=== PATIENT | female | born 1960 | race Two or more races ===

== ENCOUNTER 2020-12-23 23:02 | Inpatient (IN) | payer MEDICAID ==
[~2020-12-23] VITALS: Ht 162.6 cm; Wt 176.8 kg
[2020-12-23] MEDS ORDERED: morphine 4 MG/ML inj SYRINge IV ONE (23:30)
--- NOTE | 2020-12-23 23:32 | NUR ---
VERBAL RECEIVED FORM PROSPER AVERY FOR MORPHINE 4 MG IV AND RIGHT LEG XRAY
--- NOTE | 2020-12-23 23:51 | NUR ---
Patient to xray
[2020-12-24] MEDS ORDERED: morphine 4 MG/ML inj SYRINge IV ONE (00:15)
--- NOTE | 2020-12-24 00:16 | NUR ---
Per Dr. Lovelace ok to to order Morphine 4mg for extreme right leg pain
--- NOTE | 2020-12-24 00:29 | NUR ---
DAUGHTER AT BEDSIDE AND REPORTS SHE DOES NOT WANT HER MOTHER TO HAVE DR. MATTA THE ORTHOPEDIC MD. DAUGHTER AND PT UPDATED THAT THIS MESSAGE WAS PASSED TO DR. FERNANDEZ.
[2020-12-24] MEDS ORDERED: HYDROmorphone 1 mg/ml syringe IV PRN (00:35)
--- NOTE | 2020-12-24 00:46 | NUR ---
AWAITING ORTHO BED WITHI TRAPEZE AND TRACTION. DILAUDID NOW ORDERED.
[2020-12-24 00:58] LABS: BASOPHILS % (AUTO) 0.2 % (0-1); EOSINOPHILS % (AUTO) 0.4 % (0-6); HEMATOCRIT 30.4 % (35.0-45.0); LYMPHOCYTES # (AUTO) 0.6 X10'3 (1.1-4.8); LYMPHOCYTES % (AUTO) 9.4 % (21-51); MEAN CORPUSCULAR HEMOGLOBIN 29.2 PG (27.0-31.0); MEAN CORPUSCULAR HGB CONC 33.1 g/dL (33.0-36.5); MEAN CORPUSCULAR VOLUME 88.3 FL (78-98); MONOCYTES # (AUTO) 0.4 X10'3 (0-0.9); MONOCYTES % (AUTO) 5.5 % (2-12); NEUTROPHILS # (AUTO) 5.6 X10'3 (1.8-7.7); NEUTROPHILS % (AUTO) 84.5 % (42-75); PLATELET COUNT 132 X10'3 (140-440); RED BLOOD COUNT 3.44 X10'6 (4.20-5.60); RED CELL DISTRIBUTION WIDTH 15.3 % (11.5-14.5); WHITE BLOOD COUNT 6.6 X10'3 (4.5-11.0)
--- NOTE | 2020-12-24 00:58 | NUR ---
Dr. Amador at bedside to admit pt. Pt's son at bedside. Pt given dilaudid 1 mg iv.
[2020-12-24 01:02] LABS: ALANINE AMINOTRANSFERASE 19 U/L (12-78); ALBUMIN 3.4 G/DL (3.4-5.0); ALBUMIN/GLOBULIN RATIO 0.9 (1.1-1.5); ALKALINE PHOSPHATASE 121 IU/L (46-116); ANION GAP 10 (8-16); ASPARTATE AMINO TRANSFERASE 24 U/L (10-37); BILIRUBIN,TOTAL 0.6 MG/DL (0.1-1.0); BLOOD UREA NITROGEN 22 MG/DL (7-18); BUN/CREATININE RATIO 29.3 (6.6-38.0); CALCIUM 8.7 MG/DL (8.5-10.1); CHLORIDE 105 MMOL/L (99-107); CREATININE 0.75 MG/DL (0.40-0.90); GLUCOSE 118 MG/DL (70-104); POTASSIUM 3.9 MMOL/L (3.5-5.1); SODIUM 142 MMOL/L (135-145); TOTAL PROTEIN 7.1 G/DL (6.4-8.2); eGFR 79 ML/MIN
[2020-12-24] MEDS ORDERED: HYDROmorphone 1 mg/ml syringe IV ONE (01:10)
--- NOTE | 2020-12-24 01:11 | NUR ---
verbal received for adtl dilaudid 1.5 mg iv x1 now from Dr. Amador
[2020-12-24] MEDS ORDERED: potassium Cl 40MEQ/1/2NS 520ml 520 ML IV PRN ×2 (01:25)
[2020-12-24] MEDS ORDERED: potassium Cl 20 mEq SR tablet PO PRN ×2 (01:25)
[2020-12-24] MEDS ORDERED: HYDROmorphone inj. 0.5 MG/0.5 ML DISP.SYRIN IV PRN (01:25)
[2020-12-24] MEDS ORDERED: acetaminophen 325mg tablet PO PRN (01:25)
[2020-12-24] MEDS ORDERED: magnesium hydroxide 30ml (MOM) UD suspension PO PRN (01:25)
[2020-12-24] MEDS ORDERED: mag hydrox/Alum hydrox/simeth 30ml oral suspension PO PRN (01:25)
[2020-12-24] MEDS ORDERED: SERT-434 PO (01:35)
[2020-12-24] MEDS ORDERED: PRAM1TAB6 PO (01:35)
[2020-12-24] MEDS ORDERED: CYAN10007 IM (01:35)
[2020-12-24] MEDS ORDERED: FURO40TA4 PO (01:35)
[2020-12-24] MEDS ORDERED: HYDR-3972 PO (01:35)
[2020-12-24] MEDS ORDERED: MORP-92 PO (01:35)
[2020-12-24] MEDS ORDERED: CADD PCA waste documentation MC PRN (01:45)
[2020-12-24] MEDS ORDERED: naloxone 0.4 mg/ml inj IV PRN (01:45)
[2020-12-24] MEDS: normal saline 1000ml 1,000 ML IV SCH ×2 (01:51→14:31)
--- NOTE | 2020-12-24 01:55 | NUR ---
Placed on hospital ortho bed with trapeze and placed on 10 lbs traction. Daughter , Mesha, at bedside and helpful and supportive. Pt awaiting IPA. bp 168/66. Pt is intermmittently sleeping, but when awakens , states pain remains high.
--- NOTE | 2020-12-24 03:21 | NUR ---
son, Rip [phone]. Daughter, Mesha, . Daughter just left department and reports she will return later today to visit Pt. IPA 4007. Dilaudid STACKER STRAIGHTENER just set up and started. Current vss.
[2020-12-24] MEDS: HYDROmorphone/NS 1 mg/ml CADD 50 ML IV SCH ×10 (03:28→21:00)
[2020-12-24 05:46] VITALS: BP 175/62
--- NOTE | 2020-12-24 06:23 | NUR ---
Patient in room ORTHO 4007. I have received report from Michelle RN and Sruthi RN and had the opportunity to ask questions and assume patient care.
--- NOTE | 2020-12-24 06:33 | NUR ---
photoengraving proofer apprentice did not complete 0500 CADD check. Pt resting comfortably at 0630 during hourly rounding. Will assess CADD at 0700.
--- NOTE | 2020-12-24 06:35 | NUR ---
Patient in room ORTHO 4007. I have received report from DAYANARA/LALO BAUER and had the opportunity to ask questions and assume patient care. JHONATAN BOWERS RN WILL PROVIDE PRIMARY CARE. I WILL MONITOR ALL CARE AND ASSIST WHEN NEEDED.
[2020-12-24 07:00] VITALS: BP 173/55
[2020-12-24] MEDS: K and/or MAG REPLACEMENT MC SCH ×3 (08:00→20:00)
[2020-12-24] MEDS ORDERED: magnesium Cl slow-release 64mg tablet PO PRN (09:40)
[2020-12-24] MEDS ORDERED: magnesium 4gm in 100ml NS 100 ML IV PRN (09:40)
[2020-12-24 10:00] VITALS: BP 169/58
[2020-12-24] MEDS: cyclobenzaprine 10mg tablet PO PRN (11:41)
[2020-12-24] MEDS: gabapentin 300mg capsule PO SCH ×3 (11:41→20:16)
[2020-12-24] MEDS: pramipexole 1mg tablet PO SCH ×2 (11:46→20:16)
--- NOTE | 2020-12-24 12:00 | NUR ---
ORIENTEE documentation: I have reviewed and agree with all interventions, assessments performed and documented by LALO BOWERS.
--- NOTE | 2020-12-24 12:00 | NUR ---
DID NOT GIVE PT AM MEDS DUE TO BEING NPO IN PREPARATION FOR POSSIBLE SURGERY, BUT DID NOT NON-ADMIN THEM DUE TO POSSIBLY GIVING THEM AT A LATER TIME.
--- NOTE | 2020-12-24 12:00 | NUR ---
Problems reprioritized. Patient report given, questions answered & plan of care reviewed with LALO Floyd.
--- NOTE | 2020-12-24 12:16 | NUR ---
neo Floyd RN change CADD dose settings.
--- NOTE | 2020-12-24 12:16 | NUR ---
cadd setting change, bolus 0.5 mg and 0.5mg q10min prn, see mar
[2020-12-24 14:00] VITALS: BP 150/54
--- NOTE | 2020-12-24 18:11 | NUR ---
Report to Jacqueline RN. Daughter at bedside assisting patient with dinner. Plan is for transfer to [facility] in AM for higher level of care and surgery with Dr Perez. NPO after midnight in anticipation of surgery. Clarify plan of care BEFORE admin of am lovenox. Hold if surgery is still pending.
[2020-12-24] MEDS: sertraline 50mg tablet PO SCH (20:16)
[2020-12-24] MEDS: enoxaparin 40mg/0.4ml syringe SUBCUT SCH (21:32)
[2020-12-24 23:00] VITALS: BP 185/58
--- NOTE | 2020-12-24 23:34 | NUR ---
Student documentation: I have reviewed all interventions, assessments performed and documented by Britany Bella. Student Medication Administration: For this medication-pass time frame, all medication were reviewed, dispensed, administered and documented per hospital policy by Britany Garcia [place].
[2020-12-25] MEDS: ondansetron/PF 4mg/2ml inj IV PRN ×2 (01:00→07:24)
[2020-12-25] MEDS: HYDROmorphone/NS 1 mg/ml CADD 50 ML IV SCH ×12 (01:00→23:00)
[2020-12-25] MEDS: normal saline 1000ml 1,000 ML IV SCH ×2 (02:16→15:05)
[2020-12-25 05:50] LABS: BASOPHILS % (AUTO) 0.1 % (0-1); EOSINOPHILS % (AUTO) 0 % (0-6); HEMATOCRIT 28.4 % (35.0-45.0); HEMOGLOBIN 9.6 g/dl (12.0-16.0); LYMPHOCYTES # (AUTO) 0.3 X10'3 (1.1-4.8); LYMPHOCYTES % (AUTO) 5.4 % (21-51); MEAN CORPUSCULAR HEMOGLOBIN 29.5 PG (27.0-31.0); MEAN CORPUSCULAR HGB CONC 33.9 g/dL (33.0-36.5); MEAN CORPUSCULAR VOLUME 87.1 FL (78-98); MEAN PLATELET VOLUME 9.5 FL (7.4-10.4); MONOCYTES # (AUTO) 0.3 X10'3 (0-0.9); MONOCYTES % (AUTO) 5.1 % (2-12); NEUTROPHILS # (AUTO) 5.4 X10'3 (1.8-7.7); NEUTROPHILS % (AUTO) 89.4 % (42-75); PLATELET COUNT 96 X10'3 (140-440); RED BLOOD COUNT 3.26 X10'6 (4.20-5.60); RED CELL DISTRIBUTION WIDTH 14.9 % (11.5-14.5); WHITE BLOOD COUNT 6.1 X10'3 (4.5-11.0)
[2020-12-25 06:00] VITALS: BP 170/70
[2020-12-25 06:04] LABS: ALANINE AMINOTRANSFERASE 23 U/L (12-78); ALBUMIN 2.7 G/DL (3.4-5.0); ALBUMIN/GLOBULIN RATIO 0.7 (1.1-1.5); ALKALINE PHOSPHATASE 111 IU/L (46-116); ANION GAP 7 (8-16); ASPARTATE AMINO TRANSFERASE 27 U/L (10-37); BILIRUBIN,TOTAL 0.8 MG/DL (0.1-1.0); BLOOD UREA NITROGEN 12 MG/DL (7-18); BUN/CREATININE RATIO 24.5 (6.6-38.0); CALCIUM 8.6 MG/DL (8.5-10.1); CHLORIDE 102 MMOL/L (99-107); CREATININE 0.49 MG/DL (0.40-0.90); GLUCOSE 145 MG/DL (70-104); MAGNESIUM 1.7 MG/DL (1.5-2.4); PHOSPHORUS 2.7 MG/DL (2.3-4.5); POTASSIUM 3.5 MMOL/L (3.5-5.1); SODIUM 135 MMOL/L (135-145); TOTAL PROTEIN 6.5 G/DL (6.4-8.2); eGFR > 90 ML/MIN
[2020-12-25] MEDS: enoxaparin 40mg/0.4ml syringe SUBCUT SCH (08:00)
[2020-12-25] MEDS: K and/or MAG REPLACEMENT MC SCH ×4 (08:00→19:29)
[2020-12-25] MEDS: sertraline 50mg tablet PO SCH (08:06)
[2020-12-25] MEDS: pramipexole 1mg tablet PO SCH ×2 (08:06→20:52)
[2020-12-25] MEDS: gabapentin 300mg capsule PO SCH ×3 (08:06→20:52)
[2020-12-25] MEDS: cyclobenzaprine 10mg tablet PO PRN (09:04)
--- NOTE | 2020-12-25 09:22 | NUR ---
Zofran was given at 0730 for complain of nausea. patient has been sleeping on and off. t 0850 patient started retching,crying,screaming and complaining of cramping pain on the right leg. Daughter at bedside. dilaudid television camera operator (CADD) dose adjusted to 0.3 mg with lockout of 10 minutes.
[2020-12-25 10:00] VITALS: BP 195/64
[2020-12-25 12:49] VITALS: BP 157/61
--- NOTE | 2020-12-25 12:50 | NUR ---
PATIENT SLEEPING APPEARS IN NO ACUTE DISTRESS
--- NOTE | 2020-12-25 15:59 | NUR ---
With the help of RN I inserted and 18 arabic Tinsley catheter in this patient for traumatic injury/prolonged immobilization currently Tinsley catheter is patent and will continue to monitor.
[2020-12-25 18:00] VITALS: BP 127/55
[2020-12-25] MEDS: cyclobenzaprine 10mg tablet PO SCH ×2 (18:32→23:56)
[2020-12-25] MEDS: amLODIPine 5mg tablet PO SCH (18:33)
[2020-12-25 18:34] LABS: TROPONIN I < 0.04 NG/ML (0.0-0.05)
[2020-12-25 22:00] VITALS: BP 135/59
[2020-12-25 22:11] LABS: CLARITY,URINE CLOUDY (Clear); COLOR,URINE YELLOW (Yellow); GLUCOSE, URINE NEGATIVE (Neg); KETONES,URINE NEGATIVE (Neg); LEUKOCYTE ESTERASE ,URINE MODERATE (Neg); NITRITES, URINE POSITIVE (Neg); OCCULT BLOOD,URINE LARGE (Neg); PROTEIN,URINE 30 mg/dl (Neg)
[2020-12-25 22:19] LABS: UA COLLECTION TYPE FOLEY CATH
[2020-12-25 22:20] LABS: BACTERIA,URINE 4+ /HPF (Neg); WBC,URINE 50-100 /HPF (0-4)
[2020-12-25 22:21] LABS: MUCUS STRANDS MANY /LPF (Neg); SQUAMOUS EPITHELIAL CELL,UR FEW /LPF (FEW)
[2020-12-26] MEDS: HYDROmorphone/NS 1 mg/ml CADD 50 ML IV SCH ×9 (01:00→16:34)
[2020-12-26] MEDS ORDERED: LIDOcaine 2% 10ml TOPICAL JELLY (Urojet) TP ONE (02:00)
[2020-12-26] MEDS: normal saline 1000ml 1,000 ML IV SCH ×2 (03:10→16:29)
[2020-12-26 06:00] VITALS: BP 133/50
[2020-12-26 06:19] LABS: BASOPHILS % (AUTO) 0.3 % (0-1); EOSINOPHILS % (AUTO) 1.1 % (0-6); HEMATOCRIT 23.5 % (35.0-45.0); HEMOGLOBIN 7.8 g/dl (12.0-16.0); LYMPHOCYTES # (AUTO) 0.7 X10'3 (1.1-4.8); LYMPHOCYTES % (AUTO) 16.1 % (21-51); MEAN CORPUSCULAR HEMOGLOBIN 29.4 PG (27.0-31.0); MEAN CORPUSCULAR HGB CONC 33.2 g/dL (33.0-36.5); MEAN CORPUSCULAR VOLUME 88.7 FL (78-98); MEAN PLATELET VOLUME 9.3 FL (7.4-10.4); MONOCYTES # (AUTO) 0.3 X10'3 (0-0.9); MONOCYTES % (AUTO) 7.3 % (2-12); NEUTROPHILS # (AUTO) 3.4 X10'3 (1.8-7.7); NEUTROPHILS % (AUTO) 75.2 % (42-75); PLATELET COUNT 83 X10'3 (140-440); RED BLOOD COUNT 2.65 X10'6 (4.20-5.60); RED CELL DISTRIBUTION WIDTH 15.1 % (11.5-14.5); WHITE BLOOD COUNT 4.5 X10'3 (4.5-11.0)
--- NOTE | 2020-12-26 06:27 | NUR ---
Problems reprioritized. Patient report given, questions answered & plan of care reviewed with LALO Mao.
[2020-12-26 06:30] LABS: ALANINE AMINOTRANSFERASE 15 U/L (12-78); ALBUMIN 2.2 G/DL (3.4-5.0); ALBUMIN/GLOBULIN RATIO 0.7 (1.1-1.5); ALKALINE PHOSPHATASE 83 IU/L (46-116); ANION GAP 5 (8-16); ASPARTATE AMINO TRANSFERASE 14 U/L (10-37); BILIRUBIN,TOTAL 0.5 MG/DL (0.1-1.0); BLOOD UREA NITROGEN 17 MG/DL (7-18); BUN/CREATININE RATIO 30.4 (6.6-38.0); CALCIUM 8.2 MG/DL (8.5-10.1); CHLORIDE 105 MMOL/L (99-107); CREATININE 0.56 MG/DL (0.40-0.90); GLUCOSE 99 MG/DL (70-104); MAGNESIUM 1.8 MG/DL (1.5-2.4); PHOSPHORUS 2.5 MG/DL (2.3-4.5); POTASSIUM 3.9 MMOL/L (3.5-5.1); SODIUM 139 MMOL/L (135-145); TOTAL CARBON DIOXIDE 29.5 MMOL/L (24-32); TOTAL PROTEIN 5.5 G/DL (6.4-8.2); eGFR > 90 ML/MIN
[2020-12-26] MEDS: pramipexole 1mg tablet PO SCH (07:28)
[2020-12-26] MEDS: gabapentin 300mg capsule PO SCH ×2 (07:28→13:11)
[2020-12-26] MEDS: cyclobenzaprine 10mg tablet PO SCH ×2 (07:29→16:29)
[2020-12-26] MEDS: sertraline 50mg tablet PO SCH (07:29)
[2020-12-26] MEDS: amLODIPine 5mg tablet PO SCH (07:32)
[2020-12-26] MEDS: K and/or MAG REPLACEMENT MC SCH ×2 (07:39→08:48)
[2020-12-26 10:00] VITALS: BP 111/39
[2020-12-26] MEDS ORDERED: CefTRIAXone/D5W-Rocephin 1gm 50 ML IV SCH (12:45)
[2020-12-26 16:00] VITALS: BP 123/51
--- NOTE | 2020-12-26 17:02 | NUR ---
REPORT GIVEN TO LUPE MAY AT [facility]
--- NOTE | 2020-12-26 18:09 | NUR ---
TRANSFERRED TO [facility] BY [facility] VIA [facility], CONDITION STABLE. Addendum: 12/26/20 at 1816 by Maya Alcantar RN PATIENT TRANSFERRED WITH OXYGEN AT 2L AND WITH INTACT HAJI. PIV CAPPED.
== END 2020-12-26 18:00 | disposition short-term general hospital (02) | DRG 340 ==
LOC: ER 23:02 → ED HOLD 12-24 01:24 → ORTHO 4S 12-24 04:15
PROVIDERS: ADMIT Internal Medicine; ATTEND Family Medicine
DX: S72.8X1A Other fracture of right femur, initial encounter for closed fracture (principal); D69.6 Thrombocytopenia, unspecified; I11.9 Hypertensive heart disease without heart failure; D64.9 Anemia, unspecified; E66.01 Morbid (severe) obesity due to excess calories; F32.9 Major depressive disorder, single episode, unspecified; G89.4 Chronic pain syndrome; Z96.611 Presence of right artificial shoulder joint; Z96.612 Presence of left artificial shoulder joint; M19.90 Unspecified osteoarthritis, unspecified site; W18.39XA Other fall on same level, initial encounter; Y93.89 Activity, other specified; Y92.89 Other specified places as the place of occurrence of the external cause; I25.2 Old myocardial infarction; Y99.8 Other external cause status; Z79.891 Long term (current) use of opiate analgesic; Z68.44 Body mass index [BMI] 60.0-69.9, adult
CPT/HCPCS: 36415; 71045; 72170; 73552; 73560; 80053; 81001; 83735; 84100; 84443; 84484; 85025; 85610; 86885; 86900; 86901; 86920; 87077; 87081; 87088; 87186; 87426; 93005; 93306; 96374; 96375; 99285; G0378; J0696; J1170; J1650; J2270; J2405; J7030

== ENCOUNTER 2023-06-30 14:56 | Inpatient (IN) | payer MEDICAID ==
[~2023-06-30] VITALS: Ht 170.2 cm; Wt 132.0 kg
[~2023-06-30 14:56] MED LIST: CYAN10007 IM; FURO40TA4 PO; HYDR-3972 PO; MORP-92 PO; PRAM1TAB6 PO; SERT-434 PO
[2023-06-30] MEDS ORDERED: ondansetron/PF 4mg/2ml inj IV ONE (15:10)
[2023-06-30] MEDS ORDERED: methylPREDNISolone sod succ 125mg/2ml vial IV ONE (15:10)
[2023-06-30] MEDS ORDERED: ketamine 10mg/ml 20ml inj 0 MG in normal saline 100ml IV soln 100 ML IV ONE (15:10)
[2023-06-30] MEDS ORDERED: ipratropium/albuterol 3ml nebule NEB ONE (15:10)
[2023-06-30] MEDS ORDERED: normal saline 1000ML IV soln IVB ONE (15:10)
[2023-06-30] MEDS ORDERED: piperacillin/tazo 3.375gm/50ml 50 ML IV ONE (15:15)
--- NOTE | 2023-06-30 15:44 | NUR ---
Called to ER to set up Bipap, per Norberto CHENG, patient will not tolerate, vomiting, saturations are good on room air, 97-98%
[2023-06-30] MEDS ORDERED: furosemide 10 MG/1 ML 10ml inj IV ONE (15:45)
[2023-06-30] MEDS ORDERED: ringers solution, lacted 1,000 ML IV ONE (15:45)
[2023-06-30] MEDS ORDERED: buprenorphine/naloxone 8MG-2MG SUBlingual film SL ONE ×3 (16:05→16:25)
[2023-06-30] MEDS: ketamine 10mg/ml 100 MG in NS 100ml IVPB IV SCH ×2 (16:13→17:00)
[2023-06-30 17:13] LABS: APTT 28 SECONDS (22-32); PROTHROMBIN TIME 11.2 SECONDS (9.0-12.0)
[2023-06-30 17:14] LABS: ALANINE AMINOTRANSFERASE 10 U/L (12-78); ALBUMIN 3.1 G/DL (3.4-5.0); ALBUMIN/GLOBULIN RATIO 0.8 (1.1-1.5); ALKALINE PHOSPHATASE 127 IU/L (46-116); ANION GAP 9 (8-16); ASPARTATE AMINO TRANSFERASE 21 U/L (10-37); BILIRUBIN,TOTAL 0.3 MG/DL (0.1-1.0); BLOOD UREA NITROGEN 24 MG/DL (7-18); BUN/CREATININE RATIO 30.4 (10.0-20.0); CALCIUM 9.1 MG/DL (8.5-10.1); CHLORIDE 103 MMOL/L (99-107); CREATININE 0.79 MG/DL (0.40-0.90); GLUCOSE 103 MG/DL (70-104); SODIUM 137 MMOL/L (135-145); TOTAL CARBON DIOXIDE 25.5 MMOL/L (24-32); TOTAL PROTEIN 6.9 G/DL (6.4-8.2); eCRCL 72 ML/MIN; eGFR 74 ML/MIN
[2023-06-30 17:18] LABS: CREATINE KINASE 63 U/L (26-192)
[2023-06-30 17:38] LABS: BASOPHILS % (AUTO) 0.3 % (0-1); EOSINOPHILS # (AUTO) 0.1 X10'3 (0-0.9); HEMATOCRIT 32.7 % (35.0-45.0); HEMOGLOBIN 10.7 g/dl (12.0-16.0); LYMPHOCYTES # (AUTO) 0.7 X10'3 (1.1-4.8); LYMPHOCYTES % (AUTO) 10.6 % (21-51); MEAN CORPUSCULAR HEMOGLOBIN 28.3 PG (27.0-31.0); MEAN CORPUSCULAR HGB CONC 32.8 g/dL (33.0-36.5); MEAN CORPUSCULAR VOLUME 86.3 FL (78-98); MEAN PLATELET VOLUME 9.8 FL (7.4-10.4); MONOCYTES # (AUTO) 0.5 X10'3 (0-0.9); MONOCYTES % (AUTO) 7.4 % (2-12); NEUTROPHILS # (AUTO) 5.5 X10'3 (1.8-7.7); NEUTROPHILS % (AUTO) 80.7 % (42-75); PLATELET COUNT 118 X10'3 (140-440); RED BLOOD COUNT 3.79 X10'6 (4.20-5.60); RED CELL DISTRIBUTION WIDTH 15.6 % (11.5-14.5); WHITE BLOOD COUNT 6.9 X10'3 (4.5-11.0)
--- NOTE | 2023-06-30 18:10 | NUR ---
PT MOVED FROM ROOM11 TO ROOM 5. PT WAS BIBA FOR WITHDRAWL WHEN SHE WAS REPORTADLY GIVEN 16 MG OF NARCAN AT A CLINIC. PT IS IN UNCONTROLED PAIN WITH SEZIURE LIKE ACTIVITY PT WAS GIVEN A KETAMINE BOLUS PER THE MD WHICH DID LITTLE TO CALM THE PT. PT WAS ALSO GIVEN 18MG OF SABAXONE WHICH AGAIN DID LITTLE TO HELP THE PT. KETAMINE DRIP WAS STARTED AND TITRATED TO HELP PT. PT WAS INCONTIENT OF STOOL. PT CLEANED, CHANGED, AND A HAJI CAATH WAS PLACED. PT TOLERATED WELL. PT ALSO RECVEIVED A LITER OF LR. PT ACCIDENTLY DC'D HER FIELD START IV AND 2 ADDITIONAL LINES WERE PLACED HERE IN THE ER. PT WAS PLACED, PER MD, IN SOFT HAND RESTRAINTS TO PROTECT HER AND THE IV'S. PTS SEIZURE LIKE ACTIVITY PREVENTED GETTING AN ACCURATE BP FREQUENTLY.
[2023-06-30] MEDS ORDERED: iohexol 300mg/ml 100ml inj. ONE (18:21)
[2023-06-30 18:23] LABS: BILIRUBIN,URINE NEGATIVE (Neg); CLARITY,URINE CLEAR (Clear); COLOR,URINE STRAW (Yellow); GLUCOSE, URINE NEGATIVE (Neg); KETONES,URINE NEGATIVE (Neg); LEUKOCYTE ESTERASE ,URINE NEGATIVE (Neg); NITRITES, URINE NEGATIVE (Neg); OCCULT BLOOD,URINE NEGATIVE (Neg); PH,URINE 8.5 (4.8-8.0); PROTEIN,URINE NEGATIVE (Neg); UROBILINOGEN,URINE 0.2 E.U/dL (0.2-1.0)
[2023-06-30 18:28] LABS: UA COLLECTION TYPE OTHER
--- NOTE | 2023-06-30 18:42 | NUR ---
Per Dr. Ferrell, hold off on the ABG and SVN treatment ordered until we call you.
[2023-06-30] MEDS ORDERED: LORazepam 2 mg/ml vial IV ONE (18:55)
[2023-06-30 19:16] LABS: PRO BRAIN NATRIURETIC PEPTIDE 1124 PG/ML (0-125)
[2023-06-30] MEDS ORDERED: propofol 1000mg/100ml bottle 100 ML IV ONE ×2 (19:33→21:56)
--- NOTE | 2023-06-30 20:30 | NUR ---
ROCHELLE ERON RODRÍGUEZ "DAUGHTER."
[2023-06-30 21:08] VITALS: BP 193/109; PULSE 110; RESP 22; O2SAT 100
[2023-06-30] MEDS ORDERED: acetaminophen 325mg tablet PO PRN ×2 (21:10)
[2023-06-30] MEDS ORDERED: ondansetron/PF 4mg/2ml inj IV PRN (21:10)
[2023-06-30] MEDS ORDERED: magnesium hydroxide 30ml (MOM) UD suspension PO PRN (21:10)
[2023-06-30 21:21] LABS: ABG BASE EXCESS -2.4 mmol/L (-2.0-2.0); ABG HCO3 22.6 mmol/L (22.0-26.0); ABG OXYGEN SATURATION 99.3 % (94-97); ABG PCO2 (T) 39.3 mmHg (32.0-45.0); ABG PH (T) 7.376 (7.350-7.450); ABG PO2 (T) 229.4 mmHg (75.0-100.0); FCOHb 0.3 % (0.0-3.9); FHHb 0.7 % (0.0-5.0); FMetHb 0.2 % (0.0-1.5); FO2Hb 98.8 % (94-97); MODE ac/prvc; PATIENT TEMPERATURE 36.9; PEEP 5 cm H2O; RESPIRATORY RATE 22 b/min; TIDAL VOLUME 400 mL; TOTAL HEMOGLOBIN 11.7 G/dl (12.0-16.0)
[2023-06-30 23:00] VITALS: BP 113/63; PULSE 75; RESP 22; RESP 24; O2SAT 92; O2SAT 94
[2023-06-30] MEDS ORDERED: propofol 1000mg/100ml bottle 100 ML IV SCH (23:00)
[2023-06-30 23:10] VITALS: BP 113/63; PULSE 113; RESP 22; O2SAT 94
[2023-07-01] VITALS (27 sets, daily range): BP systolic 73–130; BP diastolic 40–78; PULSE 37–60; RESP 13–22; TEMP 98.3–98.7; O2SAT 85–100
[2023-07-01] MEDS: sodium chloride 0.45% 1,000 ML IV SCH ×3 (00:20→20:36)
[2023-07-01] MEDS: dexmedetomidine inj. 400 MCG in normal saline 100ml IV soln 96 ML IV SCH ×2 (00:21→06:40)
[2023-07-01] MEDS ORDERED: propofol 1000mg/100ml bottle 100 ML IV SCH (00:26)
[2023-07-01] MEDS: heparin, porcine 5000 units/ml vial SQ SCH ×3 (01:08→17:00)
[2023-07-01] MEDS ORDERED: normal saline 1000ml 1,000 ML IV ONE (01:50)
--- NOTE | 2023-07-01 02:45 | NUR ---
12-lead EKG taken to ER for possible "stemi alert"; Dr. Pizano evaluated EKG, "no stemi"; recommendations we given for serial troponins and EKGs.
[2023-07-01] MEDS ORDERED: NORepinephrine 8mg/ 250ml NS 250 ML IV SCH (02:55)
[2023-07-01] MEDS ORDERED: NORepinephrine 8mg/ 250ml NS 250 ML IV ONE (02:55)
[2023-07-01 03:16] LABS: BASOPHILS % (AUTO) 0.4 % (0-1); EOSINOPHILS % (AUTO) 0.2 % (0-6); HEMATOCRIT 22.6 % (35.0-45.0); HEMOGLOBIN 7.3 g/dl (12.0-16.0); LYMPHOCYTES # (AUTO) 0.8 X10'3 (1.1-4.8); LYMPHOCYTES % (AUTO) 17.4 % (21-51); MEAN CORPUSCULAR HEMOGLOBIN 28.3 PG (27.0-31.0); MEAN CORPUSCULAR HGB CONC 32.4 g/dL (33.0-36.5); MEAN CORPUSCULAR VOLUME 87.3 FL (78-98); MEAN PLATELET VOLUME 9.7 FL (7.4-10.4); MONOCYTES # (AUTO) 0.4 X10'3 (0-0.9); MONOCYTES % (AUTO) 8.3 % (2-12); NEUTROPHILS # (AUTO) 3.3 X10'3 (1.8-7.7); NEUTROPHILS % (AUTO) 73.7 % (42-75); PLATELET COUNT 90 X10'3 (140-440); RED BLOOD COUNT 2.59 X10'6 (4.20-5.60); RED CELL DISTRIBUTION WIDTH 15.8 % (11.5-14.5); WHITE BLOOD COUNT 4.4 X10'3 (4.5-11.0)
[2023-07-01 03:36] LABS: ALANINE AMINOTRANSFERASE 8 U/L (12-78); ALBUMIN 1.7 G/DL (3.4-5.0); ALBUMIN/GLOBULIN RATIO 0.7 (1.1-1.5); ALKALINE PHOSPHATASE 72 IU/L (46-116); ANION GAP 9 (8-16); ASPARTATE AMINO TRANSFERASE 15 U/L (10-37); BILIRUBIN,TOTAL 0.3 MG/DL (0.1-1.0); BLOOD UREA NITROGEN 16 MG/DL (7-18); BUN/CREATININE RATIO 29.1 (10.0-20.0); CALCIUM 6.3 MG/DL (8.5-10.1); CHLORIDE 112 MMOL/L (99-107); CREATININE 0.55 MG/DL (0.40-0.90); GLUCOSE 95 MG/DL (70-104); MAGNESIUM 1.1 MG/DL (1.5-2.4); PHOSPHORUS 2.4 MG/DL (2.3-4.5); POTASSIUM 3.1 MMOL/L (3.5-5.1); SODIUM 141 MMOL/L (135-145); TOTAL CARBON DIOXIDE 20.5 MMOL/L (24-32); TOTAL PROTEIN 4.1 G/DL (6.4-8.2); eCRCL 103 ML/MIN; eGFR > 90 ML/MIN
[2023-07-01] MEDS ORDERED: potassium Cl 40MEQ/1/2NS 520ml 520 ML IV PRN (04:00)
[2023-07-01] MEDS ORDERED: magnesium 2GM in 50ml NS 50 ML IV PRN (04:00)
[2023-07-01] MEDS ORDERED: magnesium 4gm in 100ml NS 100 ML IV PRN (04:00)
[2023-07-01 05:33] LABS: ABG BASE EXCESS -2.5 mmol/L (-2.0-2.0); ABG HCO3 20.7 mmol/L (22.0-26.0); ABG OXYGEN SATURATION 97.1 % (94-97); ABG PCO2 (T) 30.8 mmHg (32.0-45.0); ABG PH (T) 7.445 (7.350-7.450); ABG PO2 (T) 84.5 mmHg (75.0-100.0); ALLEN'S TEST Modified; FCOHb 0.8 % (0.0-3.9); FHHb 2.9 % (0.0-5.0); FMetHb 0.3 % (0.0-1.5); MODE Vent-AC/PRVC; PATIENT TEMPERATURE 36.9; PEEP 5 cm H2O; RESPIRATORY RATE 22 b/min; TIDAL VOLUME 400 mL; TOTAL HEMOGLOBIN 11.9 G/dl (12.0-16.0)
--- NOTE | 2023-07-01 06:30 | NUR ---
Patient in room ICU 2044. I have received report from sam and had the opportunity to ask questions and assume patient care.
[2023-07-01] MEDS ORDERED: ringers solution, lacted 1,000 ML IV ONE (06:50)
[2023-07-01] MEDS: K and/or MAG REPLACEMENT MC SCH (08:00)
[2023-07-01] MEDS: famotidine/PF 10 mg/ml inj IV SCH ×2 (08:22→20:23)
[2023-07-01] MEDS ORDERED: vancomycin/NS 1 GM ADD-VANTAGE 250 ML IV ONE (08:50)
--- NOTE | 2023-07-01 09:00 | NUR ---
update to md and family. daughter and poa with many questions. pt placed on spont- anxious at time but tolerating well
[2023-07-01] MEDS ORDERED: morphine 4 MG/ML inj SYRINge IV PRN (10:45)
[2023-07-01] MEDS ORDERED: morphine 4 MG/ML inj SYRINge IV ONE (10:46)
--- NOTE | 2023-07-01 10:50 | NUR ---
pt extubated. voice hoarrse and dry, but appears drowsy, but oriented when awake. ms 4mg ivp given as per md
[2023-07-01] MEDS ORDERED: METH-603 PO (10:52)
[2023-07-01] MEDS ORDERED: methadone 10mg tablet PO SCH (11:00)
[2023-07-01 11:26] LABS: APTT 30 SECONDS (22-32); INR 1.1 INR; PROTHROMBIN TIME 11.7 SECONDS (9.0-12.0)
--- NOTE | 2023-07-01 12:35 | NUR ---
Initial: Per EMR pt BIB EMS for acute withdrawal and intubated for airway protection. Per RN at [facility] Propofol was held this morning, anticipate extubation per MD at [facility]. Pt does not have an OGT or NGT d/t hx gastric bypass so unable to initiate nutrition support at this time though may not be warranted if pt gets extubated. D/w MD recommendation for several vitamins given gastric bypass hx, physician approved. See recommendations below that were d/w clinical pharmacist. Per family pt does not take any vitamins and may not be accepting of PO vitamins once extubated. Family states nutrition status is a very low priority at this time implying other issues are more important than nutrition. RD discussed the importance of nutrition for overall health and wellbeing especially given lack of nutrient absorption following gastric bypass requiring life long vitamin and mineral supplementation to prevent deficiencies. LBM 06/30 per EMR. Will continue to follow closely. Recommendations: 1) Initiate nutrition support as appropriate if expected prolonged intubation 2) Advance to regular diet as medically indicated following extubation 3) Given h/o Jose-en-Y: routine MVM with Iron, Vitamin D, Vitamin B12, and Calcium 4) Routine bowel care 5) Daily scaled weights Addendum: 07/01/23 at [address] Amended: Links added.
[2023-07-01] MEDS: methadone 10mg tablet PO SCH (12:45)
[2023-07-01] MEDS: methadone 5mg tablet PO SCH (12:46)
[2023-07-01] MEDS: levoFLOXACIN 500mg tablet PO SCH (12:47)
--- NOTE | 2023-07-01 13:30 | NUR ---
metadone started, took very slowly, but able to swallow with water. levaquin crushed and given with applesauce. pos x 1 bc- md aware- 1 dose vanco given., then levaquin started- asp pneum
[2023-07-01 14:43] LABS: MAGNESIUM 2.6 MG/DL (1.5-2.4); POTASSIUM 4.4 MMOL/L (3.5-5.1)
--- NOTE | 2023-07-01 15:00 | NUR ---
map to 50's- called- 500 cc albumin to be given- uo 20 to 30 to 40/hr. 1 liter lr given this am
[2023-07-01] MEDS ORDERED: albumin (Human) 5% 250ml 250 ML IV ONE ×2 (15:15)
[2023-07-01] MEDS ORDERED: albumin (Human) 5% 250ml 500 ML IV ONE (15:17)
--- NOTE | 2023-07-01 16:13 | NUR ---
map in the 60's now, sbp in the 90's
--- NOTE | 2023-07-01 17:50 | NUR ---
tx to 4024 by bed
[2023-07-01] MEDS ORDERED: heparin 10,000 units/1 ML INJ IV ONE (18:15)
--- NOTE | 2023-07-01 18:30 | NUR ---
Patient in room ORTHO 4024. I have received report from LALO Khan and had the opportunity to ask questions and assume patient care.
[2023-07-01] MEDS: heparin 25,000 UNIT/250ml bag 250 ML IV PRN (19:00)
[2023-07-01] MEDS ORDERED: glucagon, human recombinant 1mg kit SUBCUT PRN (20:20)
[2023-07-01] MEDS ORDERED: DEXTROSE 15 GM of carb/4 tabs (each vial/BOTTLE has 4 tablets) PO PRN ×2 (20:20)
[2023-07-01] MEDS ORDERED: dextrose 50%-water 50ml dispensing syringe IV PRN ×2 (20:20)
[2023-07-01] MEDS: pramipexole 1mg tablet PO SCH (20:24)
[2023-07-02] VITALS (7 sets, daily range): BP systolic 123–148; BP diastolic 50–84; PULSE 48–74; RESP 16–20; TEMP 97.5–99; O2SAT 93–98
[2023-07-02 01:32] LABS: BASOPHILS % (AUTO) 0.6 % (0-1); EOSINOPHILS # (AUTO) 0.1 X10'3 (0-0.9); EOSINOPHILS % (AUTO) 2.6 % (0-6); HEMATOCRIT 26.8 % (35.0-45.0); HEMOGLOBIN 8.6 g/dl (12.0-16.0); LYMPHOCYTES # (AUTO) 1.1 X10'3 (1.1-4.8); LYMPHOCYTES % (AUTO) 28.9 % (21-51); MEAN CORPUSCULAR HEMOGLOBIN 27.9 PG (27.0-31.0); MEAN CORPUSCULAR HGB CONC 32.2 g/dL (33.0-36.5); MEAN CORPUSCULAR VOLUME 86.7 FL (78-98); MEAN PLATELET VOLUME 9.8 FL (7.4-10.4); MONOCYTES # (AUTO) 0.3 X10'3 (0-0.9); NEUTROPHILS # (AUTO) 2.2 X10'3 (1.8-7.7); NEUTROPHILS % (AUTO) 60.9 % (42-75); PLATELET COUNT 94 X10'3 (140-440); RED CELL DISTRIBUTION WIDTH 16.1 % (11.5-14.5); WHITE BLOOD COUNT 3.7 X10'3 (4.5-11.0)
[2023-07-02 01:46] LABS: % IRON SATURATION 28 % (11-46); INR 1.1 INR; IRON 68 UG/DL (49-151); TOTAL IRON BINDING CAPACITY 245 UG/DL (259-388)
[2023-07-02 02:13] LABS: ALANINE AMINOTRANSFERASE 23 U/L (12-78); ALBUMIN 2.6 G/DL (3.4-5.0); ALBUMIN/GLOBULIN RATIO 0.9 (1.1-1.5); ALKALINE PHOSPHATASE 94 IU/L (46-116); ANION GAP 7 (8-16); ASPARTATE AMINO TRANSFERASE 45 U/L (10-37); BILIRUBIN,TOTAL 0.5 MG/DL (0.1-1.0); BLOOD UREA NITROGEN 20 MG/DL (7-18); BUN/CREATININE RATIO 22.2 (10.0-20.0); CALCIUM 8.6 MG/DL (8.5-10.1); CHLORIDE 103 MMOL/L (99-107); GLUCOSE 74 MG/DL (70-104); POTASSIUM 4.2 MMOL/L (3.5-5.1); PROTHROMBIN TIME 12.1 SECONDS (9.0-12.0); SODIUM 136 MMOL/L (135-145); TOTAL CARBON DIOXIDE 26.3 MMOL/L (24-32); TOTAL PROTEIN 5.5 G/DL (6.4-8.2); eCRCL 63 ML/MIN; eGFR 63 ML/MIN
[2023-07-02 02:27] LABS: MAGNESIUM 2.4 MG/DL (1.5-2.4); PHOSPHORUS 3.5 MG/DL (2.3-4.5)
[2023-07-02] MEDS: heparin 10,000 units/1 ML INJ IV PRN ×2 (02:31→17:46)
[2023-07-02 02:47] LABS: FERRITIN 125 NG/ML (8-252)
[2023-07-02 02:50] LABS: TROPONIN I HS, 0 HR 1429 ng/L (4-50)
[2023-07-02] MEDS: dextrose 5%-1/2 normal saline 1,000 ML IV SCH ×2 (02:59→13:06)
[2023-07-02 06:18] LABS: BASOPHILS % (AUTO) 0.5 % (0-1); EOSINOPHILS # (AUTO) 0.1 X10'3 (0-0.9); EOSINOPHILS % (AUTO) 2.8 % (0-6); HEMATOCRIT 27.8 % (35.0-45.0); HEMOGLOBIN 8.8 g/dl (12.0-16.0); LYMPHOCYTES # (AUTO) 1.1 X10'3 (1.1-4.8); LYMPHOCYTES % (AUTO) 25.8 % (21-51); MEAN CORPUSCULAR HEMOGLOBIN 27.7 PG (27.0-31.0); MEAN CORPUSCULAR HGB CONC 31.7 g/dL (33.0-36.5); MEAN CORPUSCULAR VOLUME 87.4 FL (78-98); MEAN PLATELET VOLUME 10.9 FL (7.4-10.4); MONOCYTES # (AUTO) 0.3 X10'3 (0-0.9); MONOCYTES % (AUTO) 7.6 % (2-12); NEUTROPHILS # (AUTO) 2.7 X10'3 (1.8-7.7); NEUTROPHILS % (AUTO) 63.3 % (42-75); PLATELET COUNT 100 X10'3 (140-440); RED BLOOD COUNT 3.18 X10'6 (4.20-5.60); WHITE BLOOD COUNT 4.3 X10'3 (4.5-11.0)
--- NOTE | 2023-07-02 06:51 | NUR ---
report received from Isha MAY and care assumed. Lyubov MAY
--- NOTE | 2023-07-02 07:00 | NUR ---
Report received from Dunia MAY
--- NOTE | 2023-07-02 07:20 | NUR ---
PAGER ID: [phone] MESSAGE: [phone] Vincenzo Bowen Tele reports that the patient has a QT elevation @50. Oumou [id number]
[2023-07-02] MEDS: famotidine/PF 10 mg/ml inj IV SCH ×2 (07:36→20:44)
[2023-07-02] MEDS: K and/or MAG REPLACEMENT MC SCH (08:00)
[2023-07-02] MEDS: pramipexole 1mg tablet PO SCH ×2 (08:00→20:44)
[2023-07-02] MEDS ORDERED: mineral oil/petrolatum ophthal oint EACHEYE SCH (08:00)
[2023-07-02 08:13] LABS: CHOL/HDL RATIO 1.7 (0.00-4.99); CHOLESTEROL 91 MG/DL (0-200); HDL CHOLESTEROL 54 MG/DL (35-60); LDL CHOLESTEROL 36 MG/DL (50-100); TRIGLYCERIDES 20 MG/DL (20-135)
[2023-07-02] MEDS: heparin 25,000 UNIT/250ml bag 250 ML IV PRN (10:17)
[2023-07-02] MEDS: aspirin 81mg, enteric-coated 1 TAB TABLET.DR PO SCH (11:00)
[2023-07-02] MEDS: methadone 10mg tablet PO SCH (11:11)
[2023-07-02] MEDS: methadone 5mg tablet PO SCH (11:11)
--- NOTE | 2023-07-02 12:30 | NUR ---
pt with very swollen feet-soles of feet very puffy, "that is new for her" slight fluid filled blisters noted on sides that dtr Mesha and friend Samantha states "that was from the ICU, she was 6 hour seizure with her rubbing her feet on bed and stomping on footboard" heels floated with pillows Addendum: 07/02/23 at 1840 by Lyubov Silverio RN Amended: Links added.
[2023-07-02] MEDS: clopidogrel 75mg tablet PO SCH (12:55)
[2023-07-02] MEDS: levoFLOXACIN 500mg tablet PO SCH (12:57)
--- NOTE | 2023-07-02 13:00 | NUR ---
pt seen with Dr Kirkpatrick, family asked questions, Dr Kirkpatrick gave verbal order to discontinue IV fluids, Heparin gtt discontinued earlier by emily Durham order to advance diet to heart healthy. Lyubov MAY Addendum: 07/02/23 at 1533 by Lyubov Silverio RN Amended: Links added.
[2023-07-02] MEDS: furosemide 20 MG/2 ML vial IV SCH (13:04)
[2023-07-02] MEDS ORDERED: levoFLOXACIN-Levaquin 500mg/D5 100 ML IV SCH (15:10)
--- NOTE | 2023-07-02 18:55 | NUR ---
report given to Isha Mcarthur RN Addendum: 07/02/23 at 1855 by Lyubov Silverio RN Amended: Links added.
--- NOTE | 2023-07-02 19:05 | NUR ---
Patient in room ORTHO 4024. I have received report from LALO Mcarthur and had the opportunity to ask questions and assume patient care.
[2023-07-02] MEDS: carVEDilol 3.125mg tablet PO SCH (20:00)
[2023-07-02] MEDS: sertraline 50mg tablet PO SCH (20:44)
[2023-07-02] MEDS: atorvastatin 20mg tablet PO SCH (20:44)
[2023-07-03] VITALS (10 sets, daily range): BP systolic 129–172; BP diastolic 45–90; PULSE 43–76; RESP 11–20; TEMP 97.9–98.7; O2SAT 92–97
[2023-07-03] MEDS: dextrose 5%-1/2 normal saline 1,000 ML IV SCH (05:25)
[2023-07-03 05:35] LABS: HEMATOCRIT 27.6 % (35.0-45.0); HEMOGLOBIN 8.8 g/dl (12.0-16.0); MEAN CORPUSCULAR HGB CONC 32.1 g/dL (33.0-36.5); MEAN CORPUSCULAR VOLUME 87.3 FL (78-98); PLATELET COUNT 75 X10'3 (140-440); RED BLOOD COUNT 3.16 X10'6 (4.20-5.60); RED CELL DISTRIBUTION WIDTH 15.8 % (11.5-14.5); WHITE BLOOD COUNT 2.8 X10'3 (4.5-11.0)
[2023-07-03 05:59] LABS: APTT 30 SECONDS (22-32); INR 1.1 INR; PROTHROMBIN TIME 11.8 SECONDS (9.0-12.0)
[2023-07-03 06:10] LABS: NUCLEATED RED BLOOD CELLS 1 /100WBC (0-0); TOTAL CELLS COUNTED 100
[2023-07-03 06:13] LABS: PLATELET ESTIMATE DECREASED
[2023-07-03 06:15] LABS: ELLIPTOCYTES FEW
[2023-07-03 06:17] LABS: ALANINE AMINOTRANSFERASE 23 U/L (12-78); ALBUMIN 2.5 G/DL (3.4-5.0); ALBUMIN/GLOBULIN RATIO 0.8 (1.1-1.5); ALKALINE PHOSPHATASE 96 IU/L (46-116); ANION GAP 7 (8-16); ASPARTATE AMINO TRANSFERASE 35 U/L (10-37); BILIRUBIN,TOTAL 0.4 MG/DL (0.1-1.0); BLOOD UREA NITROGEN 15 MG/DL (7-18); BUN/CREATININE RATIO 22.7 (10.0-20.0); CALCIUM 8.4 MG/DL (8.5-10.1); CHLORIDE 102 MMOL/L (99-107); CREATININE 0.66 MG/DL (0.40-0.90); GLUCOSE 75 MG/DL (70-104); PHOSPHORUS 3.7 MG/DL (2.3-4.5); POTASSIUM 3.8 MMOL/L (3.5-5.1); SODIUM 136 MMOL/L (135-145); TOTAL CARBON DIOXIDE 26.7 MMOL/L (24-32); TOTAL PROTEIN 5.7 G/DL (6.4-8.2); eCRCL 86 ML/MIN; eGFR > 90 ML/MIN
--- NOTE | 2023-07-03 06:35 | NUR ---
Problems reprioritized. Patient report given, questions answered & plan of care reviewed with LALO Mcarthur and LALO Bauer.
--- NOTE | 2023-07-03 07:22 | NUR ---
Tele called to say Patients HR in the 30's. Dr palma notified , awaiting orders. patient appears asymptomatic
[2023-07-03] MEDS: clopidogrel 75mg tablet PO SCH (07:57)
[2023-07-03] MEDS: famotidine/PF 10 mg/ml inj IV SCH (07:57)
[2023-07-03] MEDS: aspirin 81mg, enteric-coated 1 TAB TABLET.DR PO SCH (07:57)
[2023-07-03] MEDS: furosemide 20 MG/2 ML vial IV SCH ×2 (08:00→15:15)
[2023-07-03] MEDS ORDERED: VANCOmycin 2,000MG in NS 500ml IV soln IV ONE (08:00)
[2023-07-03] MEDS: pramipexole 1mg tablet PO SCH ×2 (08:00→20:29)
[2023-07-03] MEDS: carVEDilol 3.125mg tablet PO SCH (08:00)
[2023-07-03] MEDS: lactose-reduced food (Ensure Enlive) - 237ml bottle PO SCH ×3 (08:09→18:00)
[2023-07-03] MEDS: K and/or MAG REPLACEMENT MC SCH (08:11)
[2023-07-03] MEDS: potassium chloride 10mEq ER tablet PO SCH (08:29)
[2023-07-03] MEDS: methadone 10mg tablet PO SCH (11:17)
[2023-07-03] MEDS: methadone 5mg tablet PO SCH (11:17)
--- NOTE | 2023-07-03 12:13 | NUR ---
pt seen with Dr Mendiola for rounding, family-dtr Mesha and pt's errol Singh, they expressed concerns for her low heart rate-new orders to start midodrine 5 mg TID for bp support-ok to give lasix this am and continue to hold coreg due to low HR. Lyubov MAY
--- NOTE | 2023-07-03 12:17 | NUR ---
leah Bowen Room 4025H called by [employer] to report she had 5.5 second pause in HR. She is running HRs 30-50's, Dr Mendiola just rounded. Lyubov MAY Addendum: 07/03/23 at 1218 by Lyubov Silverio RN Amended: Links added.
--- NOTE | 2023-07-03 14:24 | NUR ---
tele called to say HR dipped down to 29 beats for few seconds then immediately back up to 53. Dr Kirkpatrick paged.
--- NOTE | 2023-07-03 14:55 | NUR ---
DR Kirkpatrick ordered for shock pads to be placed on patient. Pads placed, will continue to monitor
--- NOTE | 2023-07-03 15:31 | NUR ---
lasix given late after getting ok from Dr Kirkpatrick and Dr Mendiola. Lyubov MAY
--- NOTE | 2023-07-03 16:04 | NUR ---
TELE CALLED TO SAY PATIENT HAD 11 SEC PAUSE, HR dipped down to 26. was symptomatic. DR cleary called , Dr mchugh paged. Awaiting orders. B/P 148/82 HR 44, Resp 16. Afebrile
[2023-07-03] MEDS: vancomycin/NS 1 GM ADD-VANTAGE 250 ML IV SCH (16:17)
--- NOTE | 2023-07-03 16:30 | NUR ---
While at bedside with Penelope MAY after being called by telemarketer supervisor that HR down into 30's-Steph appears sleeping, is easily arrousable to voice, she states "I'm fine" when asked, while at bedside she appears to drift off to sleep, then eyes opened, trying to sit up. with agonal type breathing, eyes fixed-dtr Mesha at bedside, after 20 seconds she starts to respond saying "I'm fine, I woke up from bad dream" when asked what happened-she gets emotional with dtr stating "I'm so sorry", is consoled by dtr and appears to be doing better-informed by telemarketer supervisor that she just had 11 second pause-Lizette is calling Dr Mendiola and Dr Kirkpatrick to notify. Lyubov MAY
[2023-07-03] MEDS ORDERED: DOPamine 400mg/D5W 250ml 250 ML IV SCH ×2 (16:35→16:36)
[2023-07-03] MEDS ORDERED: HYDROmorphone inj. 0.5 MG/0.5 ML DISP.SYRIN IV PRN (16:40)
[2023-07-03] MEDS: midodrine 5mg tablet PO SCH (17:30)
--- NOTE | 2023-07-03 17:50 | NUR ---
Report called to Germania in ICU ext [phone], they just discharged pt from that room, will call when room ready-update provided to Mariella MAYweigher and charger nurse
--- NOTE | 2023-07-03 18:00 | NUR ---
Transferred to ICU room 2040 with all belongings and family, additional report to Germania MAY. Lyubov MAY
--- NOTE | 2023-07-03 18:15 | NUR ---
Patient in room ICU 2040. I have received report from Germania MAY and had the opportunity to ask questions and assume patient care.
--- NOTE | 2023-07-03 18:17 | NUR ---
Problems reprioritized. Patient report given, questions answered & plan of care reviewed with Phylicia MAY. pt. arrived to room 2040 at 1800 from the floor after receiving report from Mesha MAY. Dopamine obtained and tubing primed and placed in IV pump. Phylicia MAY assuming care now.
--- NOTE | 2023-07-03 18:32 | NUR ---
Patient transferred to ICU. I agree with charting of curtis RN
--- NOTE | 2023-07-03 19:00 | NUR ---
Spoke with Dr Mendiola regarding dopamine at fixed rate. Order changed to titratable dopamine. Also received orders to place external pacer at bedside set to pace if heart rate drops below 45 [address]PM[address] Also order to place PICC
[2023-07-03] MEDS ORDERED: DOPamine 400mg/D5W 250ml 250 ML IV PRN (19:10)
[2023-07-03] MEDS: sertraline 50mg tablet PO SCH (20:29)
[2023-07-03] MEDS: famotidine 20mg tablet PO SCH (20:29)
[2023-07-03] MEDS: atorvastatin 20mg tablet PO SCH (20:29)
[2023-07-04] VITALS (22 sets, daily range): BP systolic 96–175; BP diastolic 37–66; PULSE 40–60; RESP 8–20; O2SAT 92–100
[2023-07-04] MEDS: vancomycin/NS 1 GM ADD-VANTAGE 250 ML IV SCH (01:02)
[2023-07-04 02:44] LABS: BASOPHILS % (AUTO) 0.2 % (0-1); EOSINOPHILS # (AUTO) 0.2 X10'3 (0-0.9); EOSINOPHILS % (AUTO) 2.4 % (0-6); HEMATOCRIT 32.1 % (35.0-45.0); HEMOGLOBIN 10.4 g/dl (12.0-16.0); LYMPHOCYTES # (AUTO) 0.7 X10'3 (1.1-4.8); LYMPHOCYTES % (AUTO) 10.6 % (21-51); MEAN CORPUSCULAR HEMOGLOBIN 28.2 PG (27.0-31.0); MEAN CORPUSCULAR HGB CONC 32.5 g/dL (33.0-36.5); MEAN CORPUSCULAR VOLUME 86.8 FL (78-98); MEAN PLATELET VOLUME 10.1 FL (7.4-10.4); MONOCYTES # (AUTO) 0.7 X10'3 (0-0.9); MONOCYTES % (AUTO) 10.4 % (2-12); NEUTROPHILS # (AUTO) 4.8 X10'3 (1.8-7.7); NEUTROPHILS % (AUTO) 76.4 % (42-75); PLATELET COUNT 107 X10'3 (140-440); RED CELL DISTRIBUTION WIDTH 15.6 % (11.5-14.5); WHITE BLOOD COUNT 6.3 X10'3 (4.5-11.0)
[2023-07-04 02:50] LABS: APTT 29 SECONDS (22-32); INR 1.1 INR; PROTHROMBIN TIME 11.5 SECONDS (9.0-12.0)
[2023-07-04 04:01] LABS: ALANINE AMINOTRANSFERASE 21 U/L (12-78); ALBUMIN 2.8 G/DL (3.4-5.0); ALBUMIN/GLOBULIN RATIO 0.8 (1.1-1.5); ALKALINE PHOSPHATASE 108 IU/L (46-116); ANION GAP 8 (8-16); ASPARTATE AMINO TRANSFERASE 29 U/L (10-37); BILIRUBIN,TOTAL 0.5 MG/DL (0.1-1.0); BLOOD UREA NITROGEN 14 MG/DL (7-18); BUN/CREATININE RATIO 22.6 (10.0-20.0); CALCIUM 8.9 MG/DL (8.5-10.1); CHLORIDE 100 MMOL/L (99-107); CREATININE 0.62 MG/DL (0.40-0.90); GLUCOSE 109 MG/DL (70-104); MAGNESIUM 1.5 MG/DL (1.5-2.4); PHOSPHORUS 3.6 MG/DL (2.3-4.5); POTASSIUM 3.7 MMOL/L (3.5-5.1); SODIUM 136 MMOL/L (135-145); TOTAL CARBON DIOXIDE 28.4 MMOL/L (24-32); TOTAL PROTEIN 6.5 G/DL (6.4-8.2); eCRCL 91 ML/MIN; eGFR > 90 ML/MIN
--- NOTE | 2023-07-04 06:33 | NUR ---
Problems reprioritized. Patient report given, questions answered & plan of care reviewed with Jadyn MAY.
--- NOTE | 2023-07-04 06:40 | NUR ---
Patient in room ICU 2040. I have received report from LALO Whatley and had the opportunity to ask questions and assume patient care.
[2023-07-04] MEDS ORDERED: VANCOMYCIN LEVEL IV ONE (07:30)
[2023-07-04] MEDS ORDERED: ampicillin inj 1 GM in normal saline 100ml IV soln 100 ML IV SCH (08:00)
[2023-07-04] MEDS: lactose-reduced food (Ensure Enlive) - 237ml bottle PO SCH ×3 (08:02→18:00)
[2023-07-04] MEDS: midodrine 5mg tablet PO SCH ×3 (08:35→16:00)
[2023-07-04] MEDS: pramipexole 1mg tablet PO SCH ×2 (08:36→20:25)
[2023-07-04] MEDS: potassium chloride 10mEq ER tablet PO SCH (08:37)
[2023-07-04] MEDS: clopidogrel 75mg tablet PO SCH (08:37)
[2023-07-04] MEDS: famotidine 20mg tablet PO SCH ×2 (08:37→20:25)
[2023-07-04] MEDS: aspirin 81mg, enteric-coated 1 TAB TABLET.DR PO SCH (08:37)
[2023-07-04] MEDS: furosemide 20 MG/2 ML vial IV SCH (08:38)
[2023-07-04] MEDS: methadone 5mg tablet PO SCH (11:29)
[2023-07-04] MEDS: methadone 10mg tablet PO SCH (11:29)
--- NOTE | 2023-07-04 13:11 | NUR ---
F/u: Pt extubated on 07/01 noted now on 6L NC. Pt advanced to a heart healthy diet with average PO intake of 40% x 5 meals though appears to be trending upwards with 50% for last 3 meals. Pt continues receiving Ensure Enlive TIDWM with overall good ONS acceptance of 88% x 4 ONS. PO intake and ONS combined met 100% of estimated kcal needs and 100% of protein needs. LBM on 07/01 with available PRN MoM per EMR. Will continue to monitor and make recommendation as appropriate. Recommendations: 1) continue heart healthy diet 2) continue Ensure Enlive TIDWM 3) Given h/o Jose-en-Y: routine MVM with Iron, Vitamin D, Vitamin B12, and Calcium 4) PRN/routine bowel care 5) weekly scaled wts Addendum: 07/04/23 at [address] Amended: Links added.
[2023-07-04] MEDS ORDERED: midazolam 1 mg/ML 2ml injection ONE (13:32)
[2023-07-04] MEDS ORDERED: vancomycin 1,000mg inj ONE (13:32)
[2023-07-04] MEDS ORDERED: LIDOcaine 1% W/epiNEPHrine 1:100,000 20ml vial ONE ×2 (13:32→16:08)
[2023-07-04] MEDS ORDERED: iohexol 350 MG/ML 50ML vial IV ONE (13:33)
[2023-07-04] MEDS ORDERED: ceFAZolin 1000mg inj ONE (13:39)
[2023-07-04] MEDS ORDERED: ampicillin inj 2 GM in normal saline 100ml IV soln 100 ML IV SCH (14:00)
[2023-07-04] MEDS: ampicillin/sulbac 3gm/NS 100ml 100 ML IV SCH ×2 (14:23→20:24)
--- NOTE | 2023-07-04 14:42 | NUR ---
Pt to lab coordinator for pacemaker placement. Pt in NAD. Family at bedside, will wait in waiting area for procedure to be completed.
[2023-07-04] MEDS ORDERED: fentaNYL/PF 50MCG/1 ML 2ML syringe ONE (15:20)
--- NOTE | 2023-07-04 17:30 | NUR ---
Pt arrived back to the floor from research laboratory specialist. Pacemaker placed to L chest. Pt in NAD will continue to monitor.
--- NOTE | 2023-07-04 18:12 | NUR ---
Problems reprioritized. Patient report given, questions answered & plan of care reviewed with LALO Whatley.
--- NOTE | 2023-07-04 18:23 | NUR ---
Patient in room ICU 2040. I have received report from Jadyn MAY and had the opportunity to ask questions and assume patient care.
[2023-07-04] MEDS ORDERED: HYDROcodone/acetaminophen 5mg/325mg tablet PO PRN (19:10)
[2023-07-04] MEDS ORDERED: HYDROcodone/acetaminophen 10/325mg tab PO PRN (19:10)
[2023-07-04] MEDS ORDERED: vancomycin/NS 1 GM ADD-VANTAGE 250 ML X 1 DOSE IV ONE (19:15)
[2023-07-04] MEDS: normal saline 1000ml 1,000 ML IV SCH (19:17)
[2023-07-04] MEDS: carvedilol 6.25mg tablet PO SCH (20:00)
[2023-07-04] MEDS: sertraline 50mg tablet PO SCH (20:25)
[2023-07-04] MEDS: atorvastatin 20mg tablet PO SCH (20:25)
[2023-07-05] VITALS (12 sets, daily range): BP systolic 109–147; BP diastolic 48–67; PULSE 60–66; RESP 12–19; TEMP 97.9–98.6; O2SAT 91–98
[2023-07-05] MEDS: ampicillin/sulbac 3gm/NS 100ml 100 ML IV SCH ×4 (02:09→22:46)
[2023-07-05] MEDS: normal saline 1000ml 1,000 ML IV SCH ×2 (05:10→21:47)
[2023-07-05 06:01] LABS: EOSINOPHILS # (AUTO) 0.2 X10'3 (0-0.9); EOSINOPHILS % (AUTO) 4.4 % (0-6); HEMOGLOBIN 9.7 g/dl (12.0-16.0); RED CELL DISTRIBUTION WIDTH 15.7 % (11.5-14.5)
[2023-07-05 06:03] LABS: BASOPHILS % (AUTO) 0.4 % (0-1); HEMATOCRIT 29.7 % (35.0-45.0); LYMPHOCYTES # (AUTO) 0.8 X10'3 (1.1-4.8); LYMPHOCYTES % (AUTO) 21.5 % (21-51); MEAN CORPUSCULAR HEMOGLOBIN 28.2 PG (27.0-31.0); MEAN CORPUSCULAR HGB CONC 32.6 g/dL (33.0-36.5); MEAN CORPUSCULAR VOLUME 86.5 FL (78-98); MEAN PLATELET VOLUME 9.9 FL (7.4-10.4); MONOCYTES # (AUTO) 0.4 X10'3 (0-0.9); MONOCYTES % (AUTO) 10.2 % (2-12); NEUTROPHILS # (AUTO) 2.2 X10'3 (1.8-7.7); NEUTROPHILS % (AUTO) 63.5 % (42-75); PLATELET COUNT 97 X10'3 (140-440); RED BLOOD COUNT 3.43 X10'6 (4.20-5.60); WHITE BLOOD COUNT 3.5 X10'3 (4.5-11.0)
[2023-07-05 06:13] LABS: APTT 31 SECONDS (22-32); INR 1.1 INR; PROTHROMBIN TIME 11.9 SECONDS (9.0-12.0)
--- NOTE | 2023-07-05 06:20 | NUR ---
Problems reprioritized. Patient report given, questions answered & plan of care reviewed with Dianne MAY.
[2023-07-05 06:23] LABS: ALANINE AMINOTRANSFERASE 15 U/L (12-78); ALBUMIN 2.3 G/DL (3.4-5.0); ALBUMIN/GLOBULIN RATIO 0.7 (1.1-1.5); ALKALINE PHOSPHATASE 91 IU/L (46-116); ANION GAP 1 (8-16); ASPARTATE AMINO TRANSFERASE 19 U/L (10-37); BILIRUBIN,TOTAL 0.5 MG/DL (0.1-1.0); BLOOD UREA NITROGEN 13 MG/DL (7-18); CALCIUM 8.2 MG/DL (8.5-10.1); CHLORIDE 102 MMOL/L (99-107); CREATININE 0.62 MG/DL (0.40-0.90); GLUCOSE 76 MG/DL (70-104); MAGNESIUM 1.5 MG/DL (1.5-2.4); PHOSPHORUS 3.8 MG/DL (2.3-4.5); POTASSIUM 3.6 MMOL/L (3.5-5.1); SODIUM 139 MMOL/L (135-145); THYROID STIMULATING HORMONE 1.45 ulU/ml (0.34-4.50); TOTAL PROTEIN 5.8 G/DL (6.4-8.2); eCRCL 91 ML/MIN; eGFR > 90 ML/MIN
--- NOTE | 2023-07-05 06:36 | NUR ---
Patient in room ICU 2040. I have received report from Phylicia MAY and had the opportunity to ask questions and assume patient care.
--- NOTE | 2023-07-05 06:37 | NUR ---
called PCU to give report, receiving RN is currently in report
[2023-07-05] MEDS: famotidine 20mg tablet PO SCH ×2 (08:00→22:46)
[2023-07-05] MEDS: lactose-reduced food (Ensure Enlive) - 237ml bottle PO SCH ×3 (08:00→18:00)
--- NOTE | 2023-07-05 08:04 | NUR ---
Problems reprioritized. Patient report given, questions answered & plan of care reviewed with Geni MAY.
[2023-07-05] MEDS: furosemide 20 MG/2 ML vial IV SCH (10:01)
[2023-07-05] MEDS: carvedilol 6.25mg tablet PO SCH ×2 (10:03→21:47)
[2023-07-05] MEDS: aspirin 81mg, enteric-coated 1 TAB TABLET.DR PO SCH (10:05)
[2023-07-05] MEDS: potassium chloride 10mEq ER tablet PO SCH (10:07)
[2023-07-05] MEDS: pramipexole 1mg tablet PO SCH ×2 (10:09→21:46)
[2023-07-05] MEDS: midodrine 5mg tablet PO SCH ×2 (10:11→12:00)
[2023-07-05] MEDS: clopidogrel 75mg tablet PO SCH (10:11)
[2023-07-05] MEDS: methadone 5mg tablet PO SCH (11:38)
[2023-07-05] MEDS: methadone 10mg tablet PO SCH (11:38)
--- NOTE | 2023-07-05 14:00 | NUR ---
Pt's Unasyn unavailable. Emergency on the unit. Unable to contact pharmacy at this time to have medication delivered.
[2023-07-05 15:24] LABS: HEMOGLOBIN A1C 4.9 % (4.5-6.2)
[2023-07-05] MEDS ORDERED: ondansetron 4mg rapidly disintigrating tab PO PRN (15:25)
--- NOTE | 2023-07-05 16:00 | NUR ---
Pt's daughter at bedside asked this nurse to assess Steph. Steph was confused, lethargic and unable to answer questions appropriately which was a drastic change from this morning. Pt was AOX4 earlier in the shift. PT stated pt had mono-clonic type movements and was unable to work with PT. Pt earlier in the shift was able to transfer to wheelchair and back to bed with one person assist. This typewriter ribbon winder did a NIHSS scale and pt was equal strength to both side. Pt was unable to concentrate throughout the assessment. MD Caballero was notified and came to the bedside. CT head ordered and liver enzymes and ammonia levels were drawn which at the end of this shift were still pending. Pt CT head negative. Pt upon end of shift is more alert and answering questions appropriately, but remains lethargic will follow up in AM with .
[2023-07-05 19:13] LABS: ALANINE AMINOTRANSFERASE 12 U/L (12-78); ASPARTATE AMINO TRANSFERASE 21 U/L (10-37)
--- NOTE | 2023-07-05 19:58 | NUR ---
Problems reprioritized. Patient report given, questions answered & plan of care reviewed with LALO Lynn.
[2023-07-05] MEDS: atorvastatin 20mg tablet PO SCH (21:46)
[2023-07-05] MEDS: sertraline 50mg tablet PO SCH (21:46)
[2023-07-06] VITALS (7 sets, daily range): BP systolic 125–144; BP diastolic 61–64; PULSE 58–61; RESP 16–20; TEMP 97.6–98.4; O2SAT 93–98
[2023-07-06] MEDS: normal saline 1000ml 1,000 ML IV SCH ×2 (01:10→11:32)
[2023-07-06] MEDS: ampicillin/sulbac 3gm/NS 100ml 100 ML IV SCH ×4 (02:46→21:58)
--- NOTE | 2023-07-06 06:41 | NUR ---
Report given to Jadyn
[2023-07-06 07:51] LABS: BASOPHILS % (AUTO) 0.2 % (0-1); EOSINOPHILS # (AUTO) 0.2 X10'3 (0-0.9); HEMATOCRIT 27.8 % (35.0-45.0); HEMOGLOBIN 9.2 g/dl (12.0-16.0); LYMPHOCYTES # (AUTO) 0.7 X10'3 (1.1-4.8); MEAN CORPUSCULAR HEMOGLOBIN 28.5 PG (27.0-31.0); MEAN CORPUSCULAR HGB CONC 33.1 g/dL (33.0-36.5); MEAN CORPUSCULAR VOLUME 86.1 FL (78-98); MEAN PLATELET VOLUME 9.9 FL (7.4-10.4); MONOCYTES # (AUTO) 0.4 X10'3 (0-0.9); MONOCYTES % (AUTO) 7.1 % (2-12); NEUTROPHILS # (AUTO) 4.1 X10'3 (1.8-7.7); NEUTROPHILS % (AUTO) 75.7 % (42-75); PLATELET COUNT 101 X10'3 (140-440); RED BLOOD COUNT 3.23 X10'6 (4.20-5.60); RED CELL DISTRIBUTION WIDTH 15.6 % (11.5-14.5); WHITE BLOOD COUNT 5.4 X10'3 (4.5-11.0)
[2023-07-06] MEDS: lactose-reduced food (Ensure Enlive) - 237ml bottle PO SCH ×3 (08:00→18:07)
[2023-07-06 08:01] LABS: APTT 30 SECONDS (22-32); INR 1.1 INR; PROTHROMBIN TIME 11.7 SECONDS (9.0-12.0)
[2023-07-06 08:38] LABS: ALANINE AMINOTRANSFERASE 12 U/L (12-78); ALBUMIN 2.3 G/DL (3.4-5.0); ALBUMIN/GLOBULIN RATIO 0.7 (1.1-1.5); ALKALINE PHOSPHATASE 85 IU/L (46-116); ANION GAP 4 (8-16); ASPARTATE AMINO TRANSFERASE 16 U/L (10-37); BILIRUBIN,TOTAL 0.4 MG/DL (0.1-1.0); BLOOD UREA NITROGEN 15 MG/DL (7-18); BUN/CREATININE RATIO 27.8 (10.0-20.0); CALCIUM 8.2 MG/DL (8.5-10.1); CHLORIDE 103 MMOL/L (99-107); CREATININE 0.54 MG/DL (0.40-0.90); GLUCOSE 74 MG/DL (70-104); MAGNESIUM 1.5 MG/DL (1.5-2.4); PHOSPHORUS 3.5 MG/DL (2.3-4.5); POTASSIUM 3.7 MMOL/L (3.5-5.1); SODIUM 141 MMOL/L (135-145); TOTAL CARBON DIOXIDE 34.3 MMOL/L (24-32); TOTAL PROTEIN 5.7 G/DL (6.4-8.2); eCRCL 105 ML/MIN; eGFR > 90 ML/MIN
[2023-07-06] MEDS: famotidine 20mg tablet PO SCH ×2 (09:02→19:35)
[2023-07-06] MEDS: EMPAGLIFLOZIN 10 MG TABLET PO SCH (09:03)
[2023-07-06] MEDS: aspirin 81mg, enteric-coated 1 TAB TABLET.DR PO SCH (09:03)
[2023-07-06] MEDS: potassium chloride 10mEq ER tablet PO SCH (09:04)
[2023-07-06] MEDS: pramipexole 1mg tablet PO SCH ×2 (09:04→19:35)
[2023-07-06] MEDS: carvedilol 6.25mg tablet PO SCH ×2 (09:04→19:35)
[2023-07-06] MEDS: losartan 25mg tablet PO SCH (09:05)
[2023-07-06] MEDS: clopidogrel 75mg tablet PO SCH (09:05)
[2023-07-06] MEDS: furosemide 20 MG/2 ML vial IV SCH (09:05)
--- NOTE | 2023-07-06 10:00 | NUR ---
Pt's dodd removed d/t leaking around catheter and pt c/o pain at dodd insertion site. Purewick in place. Pt with good UOP.
[2023-07-06] MEDS: methadone 10mg tablet PO SCH (11:00)
[2023-07-06] MEDS: methadone 5mg tablet PO SCH (11:00)
--- NOTE | 2023-07-06 12:00 | NUR ---
Problems reprioritized. Patient report given, questions answered & plan of care reviewed with LALO Morales.
--- NOTE | 2023-07-06 12:40 | NUR ---
Paged Cas Goel for pt. consult
--- NOTE | 2023-07-06 12:41 | NUR ---
Paged loader technician.
[2023-07-06] MEDS ORDERED: NYSTATIN 30 GM POWDER TP ONE (14:45)
[2023-07-06] MEDS: nystatin 15 GM powder TP SCH ×2 (14:58→20:00)
--- NOTE | 2023-07-06 17:00 | NUR ---
Jacquelin technology instructor to place pt on overnight EEG. If cap removed for some reason call her to replace. She will be here 0900 07/07 to remove cap. Daughter to stay overnight and monitor for any episodes. Teaching and instruction provided by technology instructor.
--- NOTE | 2023-07-06 18:46 | NUR ---
Gave report to Fercho MAY.
[2023-07-06 19:23] LABS: ALANINE AMINOTRANSFERASE 12 U/L (12-78); ALBUMIN 2.5 G/DL (3.4-5.0); ALBUMIN/GLOBULIN RATIO 0.7 (1.1-1.5); ALKALINE PHOSPHATASE 92 IU/L (46-116); ASPARTATE AMINO TRANSFERASE 18 U/L (10-37); BILIRUBIN,DIRECT 0.2 MG/DL (0-0.3); BILIRUBIN,TOTAL 0.5 MG/DL (0.1-1.0); THYROID STIMULATING HORMONE 1.64 ulU/ml (0.34-4.50); TOTAL PROTEIN 6.1 G/DL (6.4-8.2)
[2023-07-06] MEDS: sertraline 50mg tablet PO SCH (19:35)
[2023-07-06] MEDS: atorvastatin 20mg tablet PO SCH (19:35)
[2023-07-07 02:00] VITALS: BP 135/61; PULSE 61; RESP 20; TEMP 98.3; O2SAT 91
[2023-07-07] MEDS: ampicillin/sulbac 3gm/NS 100ml 100 ML IV SCH ×3 (03:13→13:55)
[2023-07-07] MEDS: normal saline 1000ml 1,000 ML IV SCH ×2 (05:23→08:17)
[2023-07-07 06:00] VITALS: BP 135/61; PULSE 60; RESP 16; TEMP 97.9; O2SAT 91
--- NOTE | 2023-07-07 06:17 | NUR ---
I agree with all assessment findings from Fercho TOBIAS. Pt is stable and all needs were met during the shift.
[2023-07-07 07:10] LABS: ALANINE AMINOTRANSFERASE 10 U/L (12-78); ALBUMIN 2.3 G/DL (3.4-5.0); ALBUMIN/GLOBULIN RATIO 0.7 (1.1-1.5); ALKALINE PHOSPHATASE 85 IU/L (46-116); ANION GAP 3 (8-16); ASPARTATE AMINO TRANSFERASE 17 U/L (10-37); BILIRUBIN,TOTAL 0.4 MG/DL (0.1-1.0); BLOOD UREA NITROGEN 15 MG/DL (7-18); BUN/CREATININE RATIO 24.2 (10.0-20.0); CALCIUM 8.5 MG/DL (8.5-10.1); CHLORIDE 101 MMOL/L (99-107); CREATININE 0.62 MG/DL (0.40-0.90); GLUCOSE 80 MG/DL (70-104); MAGNESIUM 1.7 MG/DL (1.5-2.4); PHOSPHORUS 3.8 MG/DL (2.3-4.5); POTASSIUM 3.9 MMOL/L (3.5-5.1); SODIUM 137 MMOL/L (135-145); TOTAL CARBON DIOXIDE 32.8 MMOL/L (24-32); TOTAL PROTEIN 5.7 G/DL (6.4-8.2); eCRCL 91 ML/MIN; eGFR > 90 ML/MIN
[2023-07-07 07:13] LABS: BASOPHILS % (AUTO) 0.4 % (0-1); EOSINOPHILS # (AUTO) 0.2 X10'3 (0-0.9); EOSINOPHILS % (AUTO) 4.7 % (0-6); HEMOGLOBIN 9.3 g/dl (12.0-16.0); LYMPHOCYTES # (AUTO) 0.8 X10'3 (1.1-4.8); LYMPHOCYTES % (AUTO) 16.4 % (21-51); MEAN CORPUSCULAR HEMOGLOBIN 28.7 PG (27.0-31.0); MEAN CORPUSCULAR HGB CONC 33.2 g/dL (33.0-36.5); MEAN CORPUSCULAR VOLUME 86.5 FL (78-98); MEAN PLATELET VOLUME 9.7 FL (7.4-10.4); MONOCYTES # (AUTO) 0.3 X10'3 (0-0.9); MONOCYTES % (AUTO) 6.8 % (2-12); NEUTROPHILS # (AUTO) 3.6 X10'3 (1.8-7.7); NEUTROPHILS % (AUTO) 71.7 % (42-75); PLATELET COUNT 103 X10'3 (140-440); RED BLOOD COUNT 3.23 X10'6 (4.20-5.60); RED CELL DISTRIBUTION WIDTH 15.4 % (11.5-14.5)
[2023-07-07 07:19] LABS: APTT 30 SECONDS (22-32); INR 1.1 INR; PROTHROMBIN TIME 11.8 SECONDS (9.0-12.0)
[2023-07-07] MEDS: famotidine 20mg tablet PO SCH (07:23)
[2023-07-07 07:24] VITALS: BP_SYST 116; PULSE 60
[2023-07-07] MEDS: potassium chloride 10mEq ER tablet PO SCH (07:24)
[2023-07-07] MEDS: carvedilol 6.25mg tablet PO SCH (07:24)
[2023-07-07] MEDS: clopidogrel 75mg tablet PO SCH (07:24)
[2023-07-07] MEDS: losartan 25mg tablet PO SCH (07:24)
[2023-07-07] MEDS: EMPAGLIFLOZIN 10 MG TABLET PO SCH (07:24)
[2023-07-07] MEDS: pramipexole 1mg tablet PO SCH (07:24)
[2023-07-07] MEDS: aspirin 81mg, enteric-coated 1 TAB TABLET.DR PO SCH (07:25)
[2023-07-07 08:00] VITALS: RESP 15; O2SAT 93
[2023-07-07] MEDS: lactose-reduced food (Ensure Enlive) - 237ml bottle PO SCH ×2 (08:00→13:08)
[2023-07-07] MEDS: nystatin 15 GM powder TP SCH (08:00)
[2023-07-07] MEDS: furosemide 20 MG/2 ML vial IV SCH (08:17)
[2023-07-07 08:38] VITALS: RESP 18; O2SAT 91
[2023-07-07] MEDS: methadone 10mg tablet PO SCH (11:57)
[2023-07-07] MEDS: methadone 5mg tablet PO SCH (11:57)
--- NOTE | 2023-07-07 16:58 | NUR ---
Patient being discharged to [facility]. all personal items sent with daughter. Left arm in sling per wastewater technician. Patient able to make needs known to staff but extremely fatigued. 1 liter NC .patient sr paced. all paper work given to transport and report called to Nurse Hardy on LT[facility] floor.
== END 2023-07-07 17:47 | DRG 710 ==
LOC: ER 14:56 → ED HOLD 21:25 → ICU 2S 22:19 → ORTHO 4S 07-01 17:50 → ICU 2S 07-03 18:00 → PCU 3S 07-05 07:35
PROVIDERS: ADMIT Surgery; ATTEND Surgery
PROC: BW251ZZ Computerized Tomography (CT Scan) of Chest, Abdomen and Pelvis using Low Osmolar Contrast (ICD-10-PCS; 2023-06-30)
PROC: 0BH17EZ Insertion of Endotracheal Airway into Trachea, Via Natural or Artificial Opening (ICD-10-PCS; 2023-06-30)
PROC: 5A1935Z Respiratory Ventilation, Less than 24 Consecutive Hours (ICD-10-PCS; 2023-06-30)
PROC: 0JH606Z Insertion of Pacemaker, Dual Chamber into Chest Subcutaneous Tissue and Fascia, Open Approach (ICD-10-PCS; principal; 2023-07-04)
PROC: 02HK3JZ Insertion of Pacemaker Lead into Right Ventricle, Percutaneous Approach (ICD-10-PCS; 2023-07-04)
PROC: 02H63JZ Insertion of Pacemaker Lead into Right Atrium, Percutaneous Approach (ICD-10-PCS; 2023-07-04)
PROC: 4A00X4Z Measurement of Central Nervous Electrical Activity, External Approach (ICD-10-PCS; 2023-07-06)
DX: A41.81 Sepsis due to Enterococcus (principal); J96.01 Acute respiratory failure with hypoxia; J69.0 Pneumonitis due to inhalation of food and vomit; I21.A1 Myocardial infarction type 2; I11.0 Hypertensive heart disease with heart failure; E66.01 Morbid (severe) obesity due to excess calories; F32.A Depression, unspecified; G25.81 Restless legs syndrome; I25.10 Atherosclerotic heart disease of native coronary artery without angina pectoris; M17.0 Bilateral primary osteoarthritis of knee; G40.89 Other seizures; M19.072 Primary osteoarthritis, left ankle and foot; D61.818 Other pancytopenia; I49.5 Sick sinus syndrome; F11.23 Opioid dependence with withdrawal; M19.071 Primary osteoarthritis, right ankle and foot; M19.012 Primary osteoarthritis, left shoulder; G40.901 Epilepsy, unspecified, not intractable, with status epilepticus; Z20.822 Contact with and (suspected) exposure to COVID-19; I50.41 Acute combined systolic (congestive) and diastolic (congestive) heart failure; R59.0 Localized enlarged lymph nodes; I27.81 Cor pulmonale (chronic); M19.011 Primary osteoarthritis, right shoulder; G89.29 Other chronic pain; N64.9 Disorder of breast, unspecified; R59.9 Enlarged lymph nodes, unspecified; Z98.84 Bariatric surgery status; Z68.42 Body mass index [BMI] 45.0-49.9, adult; Z79.899 Other long term (current) drug therapy
CPT/HCPCS: 33208; 36415; 36600; 70450; 71045; 71046; 71260; 74177; 76705; 80053; 80061; 80076; 80202; 81003; 82140; 82550; 82607; 82728; 82803; 82948; 83036; 83540; 83550; 83605; 83735; 83880; 84100; 84132; 84439; 84443; 84450; 84460; 84480; 84484; 85007; 85018; 85025; 85610; 85730; 87040; 87070; 87077; 87081; 87186; 87811; 93005; 93306; 93970; 94002; 94003; 94668; 94760; 94799; 95812; 97161; 97530; 99152; 99153; 99285; A4565; A4615; A6212; A6250; A6258; A6449; C1758; C1785; C1898; G0378; J0290; J0295; J0690; J1265; J1644; J1940; J1956; J2060; J2250; J2270; J2405; J2543; J2704; J3010; J3370; J3475; J3480; J3490; J7030; J7040; J7120; P9045; Q9967